=== PATIENT | female | born 1965 | race Caucasian/White ===

== ENCOUNTER 2021-02-13 08:13 | Emergency (ER) | payer BC, OTHER ==
[2021-02-13] MEDS ORDERED: Sodium Chloride 0.9% 10 ML Syringe FLUSH PRN (08:25)
[2021-02-13] MEDS ORDERED: HYDROmorphone 1 MG/ML Syringe IVPUSH ONE (08:26)
[2021-02-13] MEDS ORDERED: Lidocaine 1% 10 ML MDV INJECT ONE (08:37)
--- NOTE | 2021-02-13 08:37 | EDM.PDOC ---
ED HPI GENERAL MEDICAL PROBLEM - General Chief Complaint: Upper Extremity Injury/Pain Stated Complaint: wrist injury Time Seen by Provider: 02/13/21 08:25 Source of Information: Reports: Patient History Limitations: Reports: No Limitations - History of Present Illness INITIAL COMMENTS - FREE TEXT/NARRATIVE: The patient presents with a left wrist injury. She slipped on the ice and fell and fractures her left wrist. She did not hit her head or hurt her neck. She has no chest pain or abdominal pain. She has a deformity to the left wrist with pain. She is right handed. She last ate about 30 minutes ago. Onset: Sudden Duration: Minutes: Quality: Reports: Sharp Severity: Severe Improves with: Reports: Immobilization Worsens with: Reports: Movement Context: Reports: Trauma (fall) Associated Symptoms: Reports: No Other Symptoms Left Wrist Pain Score (Numeric/FACES): 10 - Related Data Allergies Allergy/AdvReac Type Severity Reaction Status Date / Time No Known Allergies Allergy Verified 02/13/21 08:26 Home Meds: Home Meds . [No Known Home Meds] 02/13/21 [History] Review of Systems - Review of Systems Review Of Systems: See Below Constitutional: Reports: No Symptoms Eyes: Reports: No Symptoms Ears: Reports: No Symptoms Nose: Reports: No Symptoms Mouth/Throat: Reports: No Symptoms Respiratory: Reports: No Symptoms Cardiovascular: Reports: No Symptoms GI/Abdominal: Reports: No Symptoms Genitourinary: Reports: No Symptoms Musculoskeletal: Reports: Other (Pain and deformity to the left wrist) ED EXAM, GENERAL - Physical Exam Exam: See Below Exam Limited By: No Limitations General Appearance: Alert, No Apparent Distress Ears: Normal External Exam Nose: Normal Inspection Head: Atraumatic, Normocephalic Neck: Normal Inspection, Supple, Non-Tender Respiratory/Chest: No Respiratory Distress, Lungs Clear, Normal Breath Sounds Cardiovascular: Regular Rate, Rhythm, No Edema, No Murmur GI/Abdominal: Soft, Non-Tender, No Organomegaly, No Mass Back Exam: Normal Inspection Extremities: Other (deformity and pain upon palpation to the left wrist. Good sensation and pulses.) Neurological: Alert, Oriented, No Motor/Sensory Deficits ED TRAUMA EXTREMITY PROCEDURES - Joint Reduction Left Wrist Sedation: Regional Block (Hematoma block) Local Anesthesia - Lidocaine (Xylocaine): 1% Plain Local Anesthetic Volume: 4cc Pre-Procedure NV Status: Normal Post-Procedure NV Status: Normal Technique: Traction/Counter Traction Number of Attempts: 1 Post-Reduction Imaging: Acceptably Reduced (Distal radius fracture was accep tably reduced) Joint Reduction Complications: No ED PROCEDURAL SEDATION - Pre Procedure Indications: fracture reduction Preparations: procedure explained, consent signed, oxygen, continuous pulse oximeter, constant attendance - Physical Exam Airway: normal anatomy Cardiovascular: normal heart sounds Respiratory: normal breath sounds Neurological: alert, responsive, NAD Mallampati Classification: 1 (soft palate, anterior/posterior tonsillar pillars, uvula visible) - Procedure Sedation Procedural Sedation Start Date: 02/13/21 Procedural Sedation Start Time: 10:15 Sedation: versed (parenteral), fentanyl ASA Classification: 1 (Normal healthy patient) - Intra Procedure Condition during procedure: lightly sedated Complications: none Reversal: none - Post Procedure Procedural Sedation End Date: 02/13/21 Procedural Sedation End Time: 10:25 Condition after procedure: alert, NAD, responds to verbal stimuli - Discharge Condition Patient returned to pre-procedure baseline: Yes Alert prior to discharge: Yes Ambulatory with assistance: Yes Vital signs normal: Yes Time spent with sedated patient: 10 min Course - Vital Signs Last Recorded V/S: Last Vital Signs Temp 97.7 F 02/13/21 08:26 Pulse 77 02/13/21 08:26 Resp 14 02/13/21 08:26 BP 131/89 02/13/21 08:26 Pulse Ox 100 02/13/21 08:26 - Orders/Labs/Meds Orders: Active Orders 24 hr Category Date Time Status Peripheral IV Care [RC] . DIRECTED Care 02/13/21 08:26 Active Wrist 2V Lt [CR] Stat Exams 02/13/21 10:12 Taken Sodium Chloride 0.9% [Saline Flush] Med 02/13/21 08:25 Active 10 ml FLUSH ASDIRECTED PRN Peripheral IV Insertion Adult [OM.PC] Routine Oth 02/13/21 08:25 Ordered Medication Orders Sodium Chloride (Sodium Chloride 0.9% 10 Ml Syringe) 10 ml FLUSH ASDIRECTED PRN PRN Reason: Keep Vein Open Last Admin: 02/13/21 08:32 Dose: 10 ml Documented by: ROCCO Meds: Medications Generic Name Dose Route Start Last Admin Trade Name Freq PRN Reason Stop Dose Admin Sodium Chloride 10 ml 02/13/21 08:25 02/13/21 08:32 Sodium Chloride 0.9% 10 Ml Syringe FLUSH 10 ml ASDIRECTED PRN Administration Keep Vein Open Discontinued Medications Generic Name Dose Route Start Last Admin Trade Name Chrissy PRN Reason Stop Dose Admin Fentanyl 50 mcg 02/13/21 09:23 02/13/21 10:05 Fentanyl 100 Mcg/2 Ml Sdv IVPUSH 02/13/21 09:24 50 mcg ONETIME ONE Administration Hydromorphone HCl 1 mg 02/13/21 08:26 02/13/21 08:31 Hydromorphone 1 Mg/Ml Syringe IVPUSH 02/13/21 08:27 1 mg ONETIME ONE Administration Lidocaine HCl 10 ml 02/13/21 08:37 02/13/21 10:09 Lidocaine 1% 10 Ml Mdv INJECT 02/13/21 08:38 10 ml ONETIME ONE Administration Midazolam HCl 2 mg 02/13/21 09:23 02/13/21 10:08 Midazolam 1 Mg/Ml 2 Ml Sdv IVPUSH 02/13/21 09:24 2 mg ONETIME ONE Administration - Re-Assessments/Exams Free Text/Narrative Re-Assessment/Exam: 02/13/21 08:36 I ordered an IV saline lock, dilaudid 1mg IV, and an x-ray of her left wrist. 02/13/21 10:31 The x-ray shows a distal radius fracture. I obtained consent and reduced her fracture. I gave her fentanyl 50mcg IV and versed. I also did a hematoma block at the distal radius. I was able to reduce the fracture without difficulty. The patient tolerated the procedure well and there were no complications. I splinted her arm and put her in a sling. I will have her follow up with Dr Pierson. Departure - Departure Time of Disposition: 10:35 Disposition: Home, Self-Care 01 Condition: Good Clinical Impression: Fall Qualifiers: Encounter type: initial encounter Qualified Code(s): W19.XXXA - Unspecified fall, initial encounter Distal radius fracture, left Qualifiers: Encounter type: initial encounter Fracture type: closed Fracture morphology: other fracture Qualified Code(s): S52.592A - Other fractures of lower end of left radius, initial encounter for closed fracture - Discharge Information *PRESCRIPTION DRUG MONITORING PROGRAM REVIEWED*: Not Applicable *COPY OF PRESCRIPTION DRUG MONITORING REPORT IN PATIENT [place]: Not Applicable Referrals: PCP,None [Primary Care Provider] - Rip Pierson MD [Physician] - 1 Week Forms: ED Department Discharge Additional Instructions: Ice your wrist for 15 minutes 3 times per day for 3 days. Try to elevate your wrist above your heart as much as you can throughout the day for 2 days. Take tylenol or motrin for pain. If that does not work, try the hydrocodone. Follow up with Dr Pierson within a week. Please return if you are worse. Sepsis Event Note (ED) - Evaluation Sepsis Screening Result: No Definite Risk - Focused Exam Vital Signs: Vital Signs Temp Pulse Resp BP Pulse Ox 02/13/21 08:26 97.7 F 77 14 131/89 100 - My Orders Last 24 Hours: My Active Orders 02/13/21 08:25 Sodium Chloride 0.9% [Saline Flush] 10 ml FLUSH ASDIRECTED PRN Peripheral IV Insertion Adult [OM.PC] Routine 02/13/21 08:26 Peripheral IV Care [RC] . DIRECTED 02/13/21 10:12 Wrist 2V Lt [CR] Stat - Assessment/Plan Last 24 Hours: My Active Orders 02/13/21 08:25 Sodium Chloride 0.9% [Saline Flush] 10 ml FLUSH ASDIRECTED PRN Peripheral IV Insertion Adult [OM.PC] Routine 02/13/21 08:26 Peripheral IV Care [RC] . DIRECTED 02/13/21 10:12 Wrist 2V Lt [CR] Stat Splinting Procedure - Splinting Splint Site: left wrist Pre-Procedure Neurovascular Status: Normal Post-Procedure Neurovascular Status: Normal Splint Material: Fiberglass Splint Design: Volar, Sling Applied & Form Fitted By: Provider Provider Post-Splint Application NV Check: NV Status Normal, Good Position
[2021-02-13] MEDS ORDERED: Midazolam 1 MG/ML 2 ML SDV IVPUSH ONE (09:23)
[2021-02-13] MEDS ORDERED: fentaNYL 100 MCG/2 ML SDV IVPUSH ONE (09:23)
--- NOTE | 2021-02-13 09:45 | CR ---
Left wrist: 4 views of the left wrist were obtained. Comparison: No prior wrist exam is available. Comminuted distal radial fracture is seen within the left wrist with articular extension. There is posterior tilt and dorsal tilt of the distal radial articular margin. Questionable fracture at the base of the ulnar styloid process is suspected. Soft tissue swelling is noted. Impression: 1. Comminuted distal radial fracture with articular extension. 2. Probable fracture within the base of the ulnar styloid process. Soft tissue swelling. Diagnostic code #3
--- NOTE | 2021-02-13 10:50 | CR ---
Left wrist: AP and lateral views of the left wrist were obtained. Comparison: Prior left wrist study performed earlier on the same day (8:44 AM). Previously noted distal radial fracture shows evidence of good reduction on current study. Angulation has been corrected. No fracture is seen within the ulnar styloid process. Soft tissue swelling is noted. Impression: 1. Good reduction of previous radial fracture. 2. No ulnar styloid avulsion fracture is seen. 3. Continued soft tissue swelling. Diagnostic code #2
== END 2021-02-13 11:11 | disposition home or self-care (01) ==
LOC: JD.ED 08:13
DX: S52.592A Other fractures of lower end of left radius, initial encounter for closed fracture (principal); W00.0XXA Fall on same level due to ice and snow, initial encounter
CPT/HCPCS: 25605; 73100; 73110; 96374; 99152; 99283; J1170; J2250; J3010; 99285